=== PATIENT | male | born 1985 | race Caucasian/White ===

== ENCOUNTER 2020-03-07 07:46 | Emergency (ER) | payer SELFPAY ==
[~2020-03-07] VITALS: Ht 177.8 cm; Wt 95.0 kg
[2020-03-07] MEDS ORDERED: IV NORMAL SALINE 1000ML BAG 1,000 ML IV SCH (08:04)
[2020-03-07] MEDS ORDERED: KETOROLAC 30 MG/ML VIAL. IVP ONE (08:15)
[2020-03-07] MEDS ORDERED: ONDANSETRON PF 4 MG/2 ML VIAL. IVP ONE (08:15)
--- NOTE | 2020-03-07 08:15 | PHYS DOC ---
Past Medical History Past Medical History: No Pertinent History Past Surgical History: Appendectomy Smoking Status: Never Smoker Alcohol Use: None General Adult EDM: Chief Complaint: FLANK PAIN HPI: HPI: Patient is a 24 year old male who presented to ER today for evaluation of right-sided flank pain that radiated to his right groin area started about 1 hour ago while he was on his way to work. Patient has a strong family history of kidney stone. He has had no history of kidney stone in the past. Patient denies any fever, no diarrhea. Patient feels nauseous but no vomiting yet. Patient described the pain is sharp stabbing pain. Nothing makes it worse or better. Review of Systems: Review of Systems: Constitutional: Denies fever or chills. [] Eyes: Denies change in visual acuity. [] HENT: Denies nasal congestion or sore throat. [] Respiratory: Denies cough or shortness of breath. [] Cardiovascular: Denies chest pain or edema. [] GI: Positive for right-sided abdominal pain, nausea, no vomiting or diarrhea. : Denies dysuria. [] Musculoskeletal: Denies back pain or joint pain. [] Integument: Denies rash. [] Neurologic: Denies headache, focal weakness or sensory changes. [] Endocrine: Denies polyuria or polydipsia. [] Lymphatic: Denies swollen glands. [] Psychiatric: Denies depression or anxiety. [] Heart Score: Risk Factors: Risk Factors: DM, Current or recent (<one month) smoker, HTN, HLP, family history of CAD, obesity. Risk Scores: Score 0 - 3: 2.5% MACE over next 6 weeks - Discharge Home Score 4 - 6: 20.3% MACE over next 6 weeks - Admit for Clinical Observation Score 7 - 10: 72.7% MACE over next 6 weeks - Early Invasive Strategies Current Medications: Current Medications Medications (Trade) Dose Ordered Sig/Tramaine Start Time Stop Time Status Last Admin Dose Admin Ketorolac Tromethamine (Toradol 30mg Vial) 30 mg 1X ONCE 03/07/20 08:15 03/07/20 08:16 UNV Ondansetron HCl (Zofran) 4 mg 1X ONCE 03/07/20 08:15 03/07/20 08:16 UNV Sodium Chloride 1,000 ml @ 1,000 mls/hr Q1H 03/07/20 08:04 03/07/20 09:03 UNV Physical Exam: PE: Constitutional: Well developed, well nourished, in mild acute distress due to pain, non-toxic appearance. [] HENT: Normocephalic, atraumatic, bilateral external ears normal, oropharynx moist, no oral exudates, nose normal. [] Eyes: PERRLA, EOMI, conjunctiva normal, no discharge. [] Neck: Normal range of motion, no tenderness, supple, no stridor. [] Cardiovascular:Heart rate regular rhythm, no murmur [] Lungs & Thorax: Bilateral breath sounds clear to auscultation [] Abdomen: Bowel sounds normal, soft, there is tenderness to palpation in the right lower abdominal area, no mass, no pulsatile masses, no rebound, no guarding. Skin: Warm, dry, no erythema, no rash. [] Back: No tenderness, no CVA tenderness. [] Extremities: No tenderness, no cyanosis, no clubbing, ROM intact, no edema. [] Neurologic: Alert and oriented X 3, normal motor function, normal sensory function, no focal deficits noted. [] Psychologic: Affect normal, judgement normal, mood normal. [] Current Patient Data: Labs: Laboratory Tests Test 03/07/20 08:10 White Blood Count 8.6 x10^3/uL Red Blood Count 4.79 x10^6/uL Hemoglobin 15.5 g/dL Hematocrit 44.6 % Mean Corpuscular Volume 93 fL Mean Corpuscular Hemoglobin 32 pg Mean Corpuscular Hemoglobin Concent 35 g/dL Red Cell Distribution Width 13.5 % Platelet Count 281 x10^3/uL Neutrophils (%) (Auto) 42 % Lymphocytes (%) (Auto) 42 % Monocytes (%) (Auto) 10 % Eosinophils (%) (Auto) 6 % Basophils (%) (Auto) 1 % Neutrophils # (Auto) 3.6 x10^3/uL Lymphocytes # (Auto) 3.6 x10^3/uL Monocytes # (Auto) 0.8 x10^3/uL Eosinophils # (Auto) 0.5 x10^3/uL Basophils # (Auto) 0.1 x10^3/uL Sodium Level 139 mmol/L Potassium Level 3.6 mmol/L Chloride Level 103 mmol/L Carbon Dioxide Level 24 mmol/L Anion Gap 12 Blood Urea Nitrogen 16 mg/dL Creatinine 1.3 mg/dL Estimated GFR (Cockcroft-Gault) 62.5 BUN/Creatinine Ratio 12 Glucose Level 126 mg/dL Calcium Level 9.1 mg/dL Total Bilirubin 0.7 mg/dL Aspartate Amino Transf (AST/SGOT) 26 U/L Alanine Aminotransferase (ALT/SGPT) 40 U/L Alkaline Phosphatase 74 U/L Total Protein 8.2 g/dL Albumin 4.4 g/dL Albumin/Globulin Ratio 1.2 Lipase 72 U/L Current Medications Medications (Trade) Dose Ordered Sig/Tramaine Route PRN Reason Start Time Stop Time Status Last Admin Dose Admin Sodium Chloride 1,000 ml @ 1,000 mls/hr Q1H IV 03/07/20 08:04 03/07/20 09:03 03/07/20 08:22 Ondansetron HCl (Zofran) 4 mg 1X ONCE IVP 03/07/20 08:15 03/07/20 08:17 DC 03/07/20 08:21 Ketorolac Tromethamine (Toradol 30mg Vial) 30 mg 1X ONCE IVP 03/07/20 08:15 03/07/20 08:17 DC 03/07/20 08:21 Ondansetron HCl (Zofran) 4 mg STK-MED ONCE .ROUTE 03/07/20 08:17 03/07/20 08:17 DC Ketorolac Tromethamine (Toradol 30mg Vial) 30 mg STK-MED ONCE .ROUTE 03/07/20 08:17 03/07/20 08:17 DC Vital Signs: Vital Signs Date Time Temp Pulse Resp B/P (MAP) Pulse Ox O2 Delivery O2 Flow Rate FiO2 03/07/20 07:59 97.3 58 20 146/73 (97) 100 Room Air 97.3 EKG: EKG: [] Radiology/Procedures: Radiology/Procedures: [][facility] [address] [place] [address] IMAGING REPORT Signed PATIENT: NIKOS SORIA ACCOUNT: [id number] : 1985 LOCATION: ER AGE: 34 SEX: M EXAM STATUS: REG ER ORD. PHYSICIAN: CAROL TENA DO REASON: RIGHT FLANK PAIN PROCEDURE: CT ABDOMEN PELVIS WO CONTRAST CT Abdomen and Pelvis without contrast History: Right flank pain Technique: Noncontrast CT imaging was performed of the abdomen and pelvis. Multiplanar images are reviewed. Exposure: One or more of the following individualized dose reduction techniques were utilized for this examination: 1. Automated exposure control 2. Adjustment of the mA and/or kV according to patient size 3. Use of iterative reconstruction technique. Comparison: None Findings: There is no renal calculus or hydronephrosis. There is a small 1 to 2 mm calculus near the right ureterovesical junction. Accurate evaluation of abdominal visceral organs is limited without intravenous contrast. There is no obvious abnormality of the spleen, liver, or pancreas. Gallbladder is present without obvious intraluminal abnormality by CT. There is no adrenal nodularity. Accurate evaluation of bowel is limited without oral contrast. There has been appendectomy. Bowel is not dilated. There is no free fluid or free air. There is appearance of degree of wall thickening of the ascending and transverse colon although may be accentuated by incomplete distention during exam. There are multiple small retroperitoneal and mesenteric nodes, no significantly enlarged nodes identified although very numerous. Impression: 1. There is a small 1 to 2 mm calculus near the right ureterovesical junction, no hydronephrosis or renal calculus. 2. Appearance of degree of colonic wall thickening such as of the right and transverse colon could be due to incomplete distention unless clinical suspicion for colitis. 3. There are innumerable small nonspecific retroperitoneal and mesenteric nodes. Electronically signed by: Shaun Diaz MD (03/07/2020 8:40 AM) [id number] DICTATED and SIGNED BY: SHAUN DIAZ MD DATE: 03/07/20839 Course & Med Decision Making: Course & Med Decision Making Pertinent Labs and Imaging studies reviewed. (See chart for details) Patient is a 34-year-old man who was evaluated in the ER due to right abdominal pain, CT scan her abdomen pelvis showing small kidney stone. Patient will be discharged home, he will feel much better now. Patient will be given phone number of l urology at [facility] for follow-up. Dragon Disclaimer: Dragann-marie Disclaimer: This electronic medical record was generated, in whole or in part, using a voice recognition dictation system. Departure Departure Impression: Primary Impression: Kidney stone on right side Disposition: HOME, SELF-CARE Condition: IMPROVED Referrals: NO PCP (PCP) Patient Instructions: Kidney Stones Additional Instructions: PLEASE CALL [facility]Y [facility] FOR FOLLOW UP THIS WEEK. The phone number is [phone] Scripts Tamsulosin Hcl (FLOMAX) 0.4 Mg Cap.er.24h 1 CAP PO DAILY, #14 CAP 11 Refills Prov: CAROL TENA DO 03/07/20 Naproxen Sodium (ANAPROX DS) 550 Mg Tablet 1 TAB PO BID PRN for PAIN for 15 Days, #30 TAB 0 Refills Prov: CAROL TENA DO 03/07/20 Justicifation of Admission Dx: Justifications for Admission: Justification of Admission Dx: N/A CAROL TENA DO Mar 07, 2020 08:15
[2020-03-07] MEDS ORDERED: KETOROLAC 30 MG/ML VIAL. ONE (08:17)
[2020-03-07] MEDS ORDERED: ONDANSETRON PF 4 MG/2 ML VIAL. ONE (08:17)
[2020-03-07 08:24] LABS: BASO # 0.1 x10^3/uL (0.0-0.2); BASO % 1 % (0-3); EOS # 0.5 x10^3/uL (0.0-0.7); EOS % 6 % (0-3); HEMATOCRIT 44.6 % (39.0-53.0); HEMOGLOBIN 15.5 g/dL (13.0-17.5); LYMPH # 3.6 x10^3/uL (1.0-4.8); LYMPH % 42 % (24-48); MEAN CORPUSCULAR HEMOGLOBIN 32 pg (25-35); MEAN CORPUSCULAR HGB CONC 35 g/dL (31-37); MEAN CORPUSCULAR VOLUME 93 fL (79-100); MONO # 0.8 x10^3/uL (0.0-1.1); MONO % 10 % (0-9); NEUT # 3.6 x10^3/uL (1.8-7.7); NEUT % 42 % (31-73); PLATELET COUNT 281 x10^3/uL (140-400); RED BLOOD COUNT 4.79 x10^6/uL (4.30-5.70); RED CELL DISTRIBUTION WIDTH 13.5 % (11.5-14.5); WHITE BLOOD COUNT 8.6 x10^3/uL (4.0-11.0)
[2020-03-07 08:29] VITALS: BP 125/58
[2020-03-07 08:34] LABS: CALCIUM 9.1 mg/dL (8.5-10.1); CREATININE 1.3 mg/dL (0.7-1.3); GFR 62.5; POTASSIUM 3.6 mmol/L (3.5-5.1)
[2020-03-07 08:42] LABS: ALBUMIN 4.4 g/dL (3.4-5.0); ALBUMIN/GLOBULIN RATIO 1.2 (1.0-1.7); TOTAL BILIRUBIN 0.7 mg/dL (0.2-1.0); TOTAL PROTEIN 8.2 g/dL (6.4-8.2)
--- NOTE | 2020-03-07 08:43 | RAD ---
CT Abdomen and Pelvis without contrast History: Right flank pain Technique: Noncontrast CT imaging was performed of the abdomen and pelvis. Multiplanar images are reviewed. Exposure: One or more of the following individualized dose reduction techniques were utilized for this examination: 1. Automated exposure control 2. Adjustment of the mA and/or kV according to patient size 3. Use of iterative reconstruction technique. Comparison: None Findings: There is no renal calculus or hydronephrosis. There is a small 1 to 2 mm calculus near the right ureterovesical junction. Accurate evaluation of abdominal visceral organs is limited without intravenous contrast. There is no obvious abnormality of the spleen, liver, or pancreas. Gallbladder is present without obvious intraluminal abnormality by CT. There is no adrenal nodularity. Accurate evaluation of bowel is limited without oral contrast. There has been appendectomy. Bowel is not dilated. There is no free fluid or free air. There is appearance of degree of wall thickening of the ascending and transverse colon although may be accentuated by incomplete distention during exam. There are multiple small retroperitoneal and mesenteric nodes, no significantly enlarged nodes identified although very numerous. Impression: 1. There is a small 1 to 2 mm calculus near the right ureterovesical junction, no hydronephrosis or renal calculus. 2. Appearance of degree of colonic wall thickening such as of the right and transverse colon could be due to incomplete distention unless clinical suspicion for colitis. 3. There are innumerable small nonspecific retroperitoneal and mesenteric nodes. Electronically signed by: Lonny Sinclair MD (03/07/2020 8:40 AM) [id number]
[2020-03-07 09:09] LABS: BILIRUBIN,URINE SMALL (NEG); CLARITY,URINE CLOUDY; COLOR,URINE AMBER; NITRITE,URINE NEGATIVE (NEG); PH,URINE 5.5 (<5.0-8.0); PROTEIN,URINE 30 mg/dL (NEG-TRACE)
[2020-03-07 09:19] LABS: RBC,URINE 20-40 /HPF (0-2)
[2020-03-07 09:20] LABS: AMORPHOUS SEDIMENT,UR PRESENT /HPF; BACTERIA,URINE FEW /HPF (0-FEW); SQUAMOUS EPITHELIAL CELL,UR FEW /LPF
[2020-03-07] MEDS ORDERED: NAPR-682 PO (09:30)
[2020-03-07] MEDS ORDERED: TAMS0.4C97 PO (09:30)
== END 2020-03-07 09:48 | disposition home or self-care (01) ==
LOC: EDBD 07:46 → ER 07:46
DX: N20.2 Calculus of kidney with calculus of ureter (principal); Z90.89 Acquired absence of other organs
CPT/HCPCS: 36415; 74176; 80053; 81001; 83690; 85025; 87086; 96361; 96374; 96375; 99284; J1885; J2405; J7030